=== PATIENT | female | born 1995 | race Caucasian/White ===

== ENCOUNTER 2019-06-09 06:53 | Inpatient (IN) | payer MEDICAID ==
[~2019-06-09] VITALS: Ht 154.9 cm; Wt 84.1 kg
[2019-06-09 07:17] VITALS: BP 115/82
[2019-06-09] MEDS ORDERED: OXYTOCIN 30U/ 0.9% NaCL 500ML 500 ML IV ONE (07:48)
[2019-06-09] MEDS ORDERED: TERBUTALINE 1 MG/ML, 1ML IVPush PRN (08:00)
[2019-06-09] MEDS ORDERED: PENICILLIN GK 5,000,000 UNITS in DEXTROSE 5% 100 ML IVPB ONE (08:00)
[2019-06-09] MEDS ORDERED: PENICILLIN GK 2,500,000 UNITS in DEXTROSE 5% 100 ML IVPB SCH (08:00)
[2019-06-09] MEDS ORDERED: MISOPROSTOL 200 MCG TABLET ONE (08:00)
[2019-06-09] MEDS ORDERED: OXYTOCIN 30U/ 0.9% NaCL 500ML 500 ML ONE (08:00)
[2019-06-09] MEDS ORDERED: TERBUTALINE 1 MG/ML, 1ML SQ PRN (08:00)
[2019-06-09] MEDS ORDERED: FENTANYL PF 100 MCG/2ML IV PRN (08:00)
[2019-06-09] MEDS ORDERED: NEWBORN KIT ONE (08:00)
[2019-06-09] MEDS ORDERED: LIDOCAINE 1%, 20ML ONE (08:00)
[2019-06-09] MEDS ORDERED: FENTANYL PF 100 MCG/2ML IVPush PRN (08:00)
[2019-06-09] MEDS ORDERED: AMPICILLIN 2 GM in SODIUM CHLORIDE 0.9% 100 ML IVPB STA (08:07)
[2019-06-09] MEDS ORDERED: ONDANSETRON 2MG/ML, 2ML ONE ×3 (08:09→18:06)
[2019-06-09] MEDS: ONDANSETRON 2MG/ML, 2ML IVPush PRN ×4 (08:11→18:07)
[2019-06-09 08:14] LABS: BASOPHILS # (AUTO) 0.05 x10^3/uL (0-0.1); BASOPHILS % (AUTO) 1 % (0-1); EOSINOPHILS # (AUTO) 0.01 x10^3/uL (0-0.4); EOSINOPHILS % (AUTO) 0 % (1-7); LYMPHOCYTES # (AUTO) 1.43 x10^3/uL (1-3.4); LYMPHOCYTES % (AUTO) 13 % (22-44); MD NO; MEAN CORPUSCULAR HEMOGLOBIN 29.7 pg (27.0-34.8); MEAN CORPUSCULAR HGB CONC 32.9 g/dL (32.4-35.8); MEAN CORPUSCULAR VOLUME 90.1 fL (80-100); MEAN PLATELET VOLUME 9.9 fL (7.4-10.4); MONOCYTES # (AUTO) 0.32 x10^3/uL (0.2-0.8); MONOCYTES % (AUTO) 3 % (2-9); NEUTROPHILS # (AUTO) 9.62 x10^3/uL (1.8-6.8); NEUTROPHILS % (AUTO) 84 % (42-75); PLATELET COUNT 223 x10^3/uL (130-400); RED BLOOD COUNT 4.22 x10^6/uL (3.82-5.3); RED CELL DISTRIBUTION WIDTH 14.3 % (9.6-15.2)
[2019-06-09] MEDS: LACTATED RINGERS 1,000 ML IV SCH ×5 (08:16→23:21)
[2019-06-09] MEDS ORDERED: FENTANYL/BUPIV./NS/PF 250 ML EPIDCONT SCH ×2 (08:40→09:30)
[2019-06-09] MEDS ORDERED: BUPIVACAINE 0.25% ONE ×3 (08:43→23:38)
[2019-06-09] MEDS ORDERED: EPHEDRINE 50 MG/ML, 1ML IVPush PRN (09:00)
[2019-06-09] MEDS ORDERED: LACTATED RINGERS 1,000 ML IVBOLUS PRN (09:00)
[2019-06-09] MEDS ORDERED: SODIUM CITRATE/CITRIC ACID 30 ML UDC PO PRN (12:00)
[2019-06-09] MEDS ORDERED: METOCLOPRAMIDE 5 MG/ML, 2ML IVPush PRN (12:00)
[2019-06-09] MEDS ORDERED: CALCIUM CARBONATE 500 MG TAB.CHEW PO PRN (12:00)
[2019-06-09] MEDS ORDERED: CALCIUM CARBONATE 500 MG TAB.CHEW ONE (12:06)
[2019-06-09] MEDS: D5%-LACTATED RINGERS 1,000 ML IV SCH ×2 (12:16→20:17)
[2019-06-09] MEDS ORDERED: AMPICILLIN 1 GM in SODIUM CHLORIDE 0.9% 50 ML IVPB SCH (13:00)
[2019-06-09] MEDS: AMPICILLIN 1 GM in SODIUM CHLORIDE 0.9% 100 ML IVPB SCH ×2 (16:30→20:17)
[2019-06-09] MEDS ORDERED: SODIUM CITRATE/CITRIC ACID 30 ML UDC ONE (20:11)
[2019-06-09] MEDS ORDERED: METOCLOPRAMIDE 5 MG/ML, 2ML ONE (20:11)
[2019-06-10] MEDS ORDERED: FENTANYL/BUPIV./NS/PF 250 ML EPIDCONT ONE (00:27)
[2019-06-10] MEDS ORDERED: OXYTOCIN 30U/ 0.9% NaCL 500ML 500 ML ONE (03:36)
[2019-06-10] MEDS: LACTATED RINGERS 1,000 ML IV SCH (03:40)
[2019-06-10] MEDS: OXYTOCIN 30U/ 0.9% NaCL 500ML 500 ML IV SCH ×2 (04:11→13:56)
[2019-06-10] MEDS ORDERED: OXYcodone/APAP 5/325MG TABLET PO PRN (04:30)
[2019-06-10] MEDS ORDERED: CALCIUM CARBONATE 500 MG TAB.CHEW PO PRN (04:30)
[2019-06-10] MEDS ORDERED: ONDANSETRON 2MG/ML, 2ML IV PRN (04:30)
[2019-06-10] MEDS ORDERED: SIMETHICONE 80 MG CHEW TAB PO PRN (04:30)
[2019-06-10 05:25] VITALS: BP 102/64
[2019-06-10] MEDS: DOCUSATE 100 MG CAPSULE PO PRN (07:04)
[2019-06-10] MEDS: PRENATAL VIT/IRON/FA 1 EACH TABLET PO SCH (07:04)
[2019-06-10 07:22] VITALS: BP 99/62
[2019-06-10 11:50] VITALS: BP 108/72
[2019-06-10 11:53] LABS: MEAN CORPUSCULAR HEMOGLOBIN 29.6 pg (27.0-34.8); MEAN CORPUSCULAR HGB CONC 32.3 g/dL (32.4-35.8); MEAN CORPUSCULAR VOLUME 91.6 fL (80-100); MEAN PLATELET VOLUME 9.7 fL (7.4-10.4); PLATELET COUNT 195 x10^3/uL (130-400); RED BLOOD COUNT 3.63 x10^6/uL (3.82-5.3); RED CELL DISTRIBUTION WIDTH 14.6 % (9.6-15.2)
[2019-06-10 12:23] LABS: BASOPHILS # (AUTO) 0.09 x10^3/uL (0-0.1); BASOPHILS % (AUTO) 1 % (0-1); EOSINOPHILS # (AUTO) 0.01 x10^3/uL (0-0.4); EOSINOPHILS % (AUTO) 0 % (1-7); LYMPHOCYTES # (AUTO) 2.39 x10^3/uL (1-3.4); LYMPHOCYTES % (AUTO) 13 % (22-44); MD SCAN; MONOCYTES # (AUTO) 1.09 x10^3/uL (0.2-0.8); MONOCYTES % (AUTO) 6 % (2-9); NEUTROPHILS # (AUTO) 14.22 x10^3/uL (1.8-6.8); NEUTROPHILS % (AUTO) 80 % (42-75)
[2019-06-10 15:47] VITALS: BP 104/72
[2019-06-10] MEDS: IBUPROFEN 600 MG TABLET PO PRN (18:35)
[2019-06-10 21:10] VITALS: BP 104/72
[2019-06-11] MEDS: OXYTOCIN 30U/ 0.9% NaCL 500ML 500 ML IV SCH (00:11)
[2019-06-11 00:25] VITALS: BP 111/77
[2019-06-11 07:40] VITALS: BP 115/81
[2019-06-11] MEDS ORDERED: MEASLES,MUMPS&RUBELLA VACC/PF 0.5 ML SQ-VACC ONE (11:30)
[2019-06-11] MEDS: IBUPROFEN 600 MG TABLET PO PRN (12:37)
[2019-06-11] MEDS: DOCUSATE 100 MG CAPSULE PO PRN (12:37)
[2019-06-11] MEDS: PRENATAL VIT/IRON/FA 1 EACH TABLET PO SCH (12:37)
[2019-06-11] MEDS ORDERED: IBUP-1222 PO (13:05)
== END 2019-06-11 17:25 | disposition home or self-care (01) | DRG 560 ==
LOC: LDOP 06:53 → LDIP 07:54 → 2NW 06-10 05:20
PROVIDERS: ADMIT Student in an Organized Health Care Education/Training Program; ATTEND Student in an Organized Health Care Education/Training Program
PROC: 10E0XZZ Delivery of Products of Conception, External Approach (ICD-10-PCS; principal; 2019-06-10)
PROC: 3E0R3BZ Introduction of Anesthetic Agent into Spinal Canal, Percutaneous Approach (ICD-10-PCS; 2019-06-10)
PROC: 00HU33Z Insertion of Infusion Device into Spinal Canal, Percutaneous Approach (ICD-10-PCS; 2019-06-10)
PROC: 10907ZC Drainage of Amniotic Fluid, Therapeutic from Products of Conception, Via Natural or Artificial Opening (ICD-10-PCS; 2019-06-10)
DX: O99.824 Streptococcus B carrier state complicating childbirth (principal); Z37.0 Single live birth; Z3A.39 39 weeks gestation of pregnancy
CPT/HCPCS: 36415; 82803; 85025; 86850; 86900; 87389; G0378; J0290; J2405; J2590; J2765; J3010; J7120; J7121